=== PATIENT | female | born 1990 | race Caucasian/White ===

== ENCOUNTER 2017-12-20 19:56 | Emergency (ER) | payer BC ==
[~2017-12-20] VITALS: Ht 165.1 cm; Wt 61.2 kg
[2017-12-20] MEDS ORDERED: diphenhydrAMINE HCL 50 MG/ML VIAL IV ONE (20:00)
[2017-12-20] MEDS ORDERED: methylPREDNISolone SOD SUCC 125 MG/2ML VIAL IV ONE (20:00)
[2017-12-20] MEDS ORDERED: FAMOTIDINE/PF INJ 20 MG/2 ML VIAL IV ONE ×2 (20:00→20:06)
--- NOTE | 2017-12-20 20:05 | NUR ---
PT A/OX4, BREATHING EFFORTLESSLY ON ROOM AIR, PT STATES SHE WAS EATING SUSHI AND 1 HOUR AFTER EATING SUSHI SHE STARTED TO HAVE ITCHING AND REDNESS ON HER BODY AND FELT WEAK, PT DENIES SOB, THROAT ITCHING OR SWELLING, AND DIFFICULTY BREATHING. PT ON MONITOR, IV PLACED PRIOR TO ARRIVAL BY EMS, MD MADE AWARE WILL CONTINUE TO MONITOR.
[2017-12-20] MEDS ORDERED: methylPREDNISolone SOD SUCC 125 MG/2ML VIAL ONE (20:06)
[2017-12-20] MEDS ORDERED: diphenhydrAMINE HCL 50 MG/ML VIAL ONE (20:06)
--- NOTE | 2017-12-20 20:27 | NUR ---
PT STATES SHE SI FEELING ALOT BETTER AT THIS TIME, PT STATES SHE IS HVAING NO SOB AND NAD NOTED MD MADE AWARE WILL CONTINUE TO MONITOR
[2017-12-20 21:01] VITALS: BP 128/81
--- NOTE | 2017-12-20 21:01 | NUR ---
Patient discharged to home in stable condition. Written and verbal after care instructions given. Patient verbalizes understanding of instruction.IV removed. Catheter intact and site benign. Pressure and 4x4 applied to site. No bleeding noted.
== END 2017-12-20 21:02 | disposition home or self-care (01) ==
LOC: ER 19:58
DX: T61.8X1A Toxic effect of other seafood, accidental (unintentional), initial encounter (principal); T78.40XA Allergy, unspecified, initial encounter; L50.0 Allergic urticaria; Y92.89 Other specified places as the place of occurrence of the external cause
CPT/HCPCS: A4606; G0168; J1200; J2930; J3490; Z7610

== ENCOUNTER 2018-07-01 12:56 | Emergency (ER) | payer BC ==
[~2018-07-01] VITALS: Ht 157.5 cm; Wt 54.4 kg
[2018-07-01 12:56] VITALS: BP 119/81
--- NOTE | 2018-07-01 13:40 | NUR ---
PT STATES LAST NIGHT SHE TRIED TO POP HER RIGHT ANKLE BY TURNING IT INWARD. THE RESULT WAS A POP AND SWELLING WITH PAIN. PT HAS ICED IT AND TOOK ADVIL LAST NIGHT. IT IS SWOLLEN AND TENDER WITH MILD ECHYMOSIS. WEAK PUSH PULLS. PT STATES SHE DROVE HERSELF AND DOESNT WANT ANY NARCOTICS. OTHERWISE NO COMPLAINTS.
--- NOTE | 2018-07-01 14:25 | NUR ---
PT RIGHT ANKLE WRAPPED IN BENITEZ WRAP. GOOD PMS. [facility]UT[facility] WALK TEACHING PROVIDED WITH TEACH BACK AND DEMONSTRATION. PT HAS GOOD TECHNIQUE. DISCHARGE INSTRUCTIONS GIVEN VERBAL AND WRITTEN. ADVISED PT ON FOLLOW UP AND TO RETURN TO ED IF FEELING WORSE NOT BETTER. ALL QUESTIONS ANSWERED. VERBALIZED UNDERSTANDING. CRUTCH WALKED FROM ED WITH STEADY GAIT.
== END 2018-07-01 14:40 | disposition home or self-care (01) ==
LOC: ER 13:02
DX: S93.491A Sprain of other ligament of right ankle, initial encounter (principal); Q79.6 Ehlers-Danlos syndromes; F17.200 Nicotine dependence, unspecified, uncomplicated; X58.XXXA Exposure to other specified factors, initial encounter; Y93.89 Activity, other specified; Y92.89 Other specified places as the place of occurrence of the external cause; Y99.8 Other external cause status
CPT/HCPCS: 73610; 99284; 99406; A4606; Z7610